=== PATIENT | female | born 1970 | race Caucasian/White ===

== ENCOUNTER → 2017-12-31 | Day surgery (SDC) | payer OTHER ==
[2017-12-25 13:26] LABS: BASOPHILS # (AUTO) 0.1 (0.0-0.1); BASOPHILS % 0.4 % (0.0-1.0); EOSINOPHILS # (AUTO) 0.3 (0.0-0.4); EOSINOPHILS % 2.1 % (0.0-6.0); HEMOGLOBIN 14.8 g/dL (12.0-16.0); LYMPHOCYTES # (AUTO) 2.4 (1.0-3.2); LYMPHOCYTES % 17.4 % (18.0-39.1); MEAN CORPUSCULAR HEMOGLOBIN 30.7 pg (28-32); MEAN CORPUSCULAR HGB CONC 32.9 g/dL (31-35); MEAN CORPUSCULAR VOLUME 93.4 fL (81-99); MONOCYTES # (AUTO) 0.9 (0.2-0.8); MONOCYTES % 6.4 % (4.4-11.3); NEUTROPHILS # (AUTO) 10.2 (2.1-6.9); NEUTROPHILS % 73.2 % (38.7-80.0); PLATELET COUNT 476 x10e3/uL (140-360); RED BLOOD COUNT 4.82 x10e6/uL (3.6-5.1); RED CELL DISTRIBUTION WIDTH 13.6 % (11.7-14.4)
--- NOTE | 2017-12-25 14:15 | Diagnostic Imaging Report ---
PROCEDURE: X-RAY CHEST, TWO VIEWS COMPARISON: None. INDICATIONS: PRE-OPERATIVE CHEST X-RAY FOR RT. FOOT SURGERY. FINDINGS: The lungs are well-inflated. No focal consolidation, pleural effusion, or pneumothorax. Tortuosity of the thoracic aorta with an otherwise normal cardiomediastinal contour. No pulmonary edema. No acute osseous abnormality. CONCLUSION: No acute cardiopulmonary abnormality. Dictated by: Masood Driscoll M.D. on 12/25/2017 at 14:13 Electronically approved by: Masood Driscoll M.D. on 12/25/2017 at 14:13
[~2017-12-31] MED LIST: BETAMETHASONE DISODIUM PHOS 6 MG/ML VIAL ONE; BUPIVACAINE HCL 0.5% INJ 30 ML VIAL INJ ONE; CEFAZOLIN SOD 2 GM/D5W 50ML 50 ML IV ONE; CENTRUM COMPLE1 EACH PO; DEXAMETHASONE SOD PHOS INJ 4 MG/ML VIAL ONE; FENTANYL CITRATE/PF 100MCG/2 ML INJ ONE; FLEXERIL10 MG PO; HYDROCODON-ACE1 EAC3 PO; KETOROLAC TROMETHAMINE 30 MG/ML VIAL ONE; LIDOCAINE HCL 2% LOCAL INJ 5 ML SDV VIAL INJ ONE; MIDAZOLAM HCL 2 MG/2 ML VIAL ONE; ONDANSETRON HCL INJ 2 MG/ML VIAL ONE; PAROXETINE HCL20 MG PO; PREDNISONE20 MG PO; PROPOFOL IV EMULSION 10 MG/ML 20 ML VIAL ONE; PROVENTIL HFA6.7 GM PO; SERTRALINE; TRAZODONE HCL100 MG PO; VIT B12 PO; WOMEN'S DAILY1 EAC2 PO; Z.0.ADDERALL 20 MG20 PO; ZOLOFT; ZOLOFT25 MG PO
--- NOTE | 2017-12-31 17:06 | Operative Report ---
DATE OF PROCEDURE: December 31, 2017 PREOPERATIVE DIAGNOSES 1. Tarsal tunnel syndrome right foot. 2. Plantar fasciitis right foot. 3. Entrapment neuritis plantar aspect right foot. POSTOPERATIVE DIAGNOSES 1. Tarsal tunnel syndrome right foot. 2. Plantar fasciitis right foot. 3. Entrapment neuritis plantar aspect right foot. OPERATIONS PERFORMED 1. Tarsal tunnel release right foot. 2. Instep plantar fasciotomy right foot. 3. Neurolysis, Diaz's nerve, right foot. 4. Trigger point cortisone injection. 5. Complication of posterior splint. ANESTHESIA: General LMA. HEMOSTASIS: Pneumatic tourniquet right thigh inflated to 350 mmHg. AIRLINE RESERVATIONIST: None. ESTIMATED BLOOD LOSS: Less than 20 mL. INJECTABLES: 10 mL of an 8:2 mixture of 2% lidocaine plain and dexamethasone. PATHOLOGY: None. INDICATIONS FOR PROCEDURE: Ms. Cisneros is a pleasant female having discomfort and pain associated to her right foot secondary to aforementioned diagnoses. She has failed conservative treatment and she was educated on risks and complications which include and are not limited to persistent pain, CRPS, neurovascular comprise, hematoma formation, soft tissue infection, osseous infection and others. She is willing and able to proceed. DESCRIPTION OF PROCEDURE: Under mild sedation she was brought to the operating room, placed on the operating room table in the supine position. Following induction and administration of general LMA anesthesia by anesthesia services, a well padded pneumatic tourniquet was placed on the patient's right thigh. The distal right lower extremity was scrubbed, prepped and draped in the usual aseptic manner. Extremity was then elevated, exsanguinated and tourniquet inflated to 350 mmHg. Attention was then directed to the medial aspect of the left ankle where procedure #1 started, tarsal tunnel release. A curvilinear incision was made about the side overlying the posterior medial aspect of the medial malleolus area with a curvilinear incision created along the side. The incision was then deepened utilizing combination sharp, blunt dissection and electrocautery. Once at the level of the laciniate ligament the same was transected. Care was taken to protect neurovascular structures within the same. There was some apparent engorgement to the vessels, particularly the veins surrounding the nerve indicative of indeed a true tarsal tunnel syndrome. The area was then copiously irrigated and then closure of the skin was obtained. Deep fascia was left intact in order to prevent recurrence of symptoms. Procedure #2: Plantar fasciotomy. Attention was then directed to the plantar aspect of the foot just distal to the weight-bearing surface of the heel where a linear longitudinal incision was created transversely along the plantar aspect of the foot. The incision was then deepened. Utilizing electrocautery dissection through the fat pad. Next, the plantar fascia was transected transversely leaving the lateral one-third of the same intact to prevent cuboid syndrome. The area was then copiously irrigated. Procedure #3: Via the same skin incision, neurolysis of Diaz's nerve was performed deep to the flexor digitorum brevis muscle belly. Nerve was identified and then freed of yong soft tissue entrapment. The area was then copiously irrigated once again. Procedure #4: Trigger point cortisone injection infiltrated to the surgical sites. Subsequently closure was obtained, closing the skin utilizing 4-0 Vicryl. Procedure #5: Posterior splint was then applied after application of dressings to protect the surgical site and then subsequently the patient was extubated and the tourniquet deflated and transferred to PACU, vital signs stable. Job#: [id number] MUMTAZ
== END | disposition home or self-care (01) ==
LOC: OR 07:08
PROVIDERS: ATTEND Podiatrist Foot Surgery
DX: G57.51 Tarsal tunnel syndrome, right lower limb (principal); M72.2 Plantar fascial fibromatosis; G58.8 Other specified mononeuropathies; J45.909 Unspecified asthma, uncomplicated; E66.01 Morbid (severe) obesity due to excess calories; K21.9 Gastro-esophageal reflux disease without esophagitis; F31.9 Bipolar disorder, unspecified; F41.9 Anxiety disorder, unspecified; Z01.812 Encounter for preprocedural laboratory examination; Z01.818 Encounter for other preprocedural examination
CPT/HCPCS: 28008; 28035; 36415; 64704; 71046; 85025; J0720; J1100; J1885; J2001; J2250; J2405

== ENCOUNTER → 2019-01-14 | Day surgery (SDC) | payer OTHER ==
--- NOTE | 2019-01-09 12:24 | Diagnostic Imaging Report ---
EXAMINATION: CHEST 2 VIEWS INDICATION: Pre-operative COMPARISON: None FINDINGS: TUBES and LINES: None. LUNGS: The lung volumes are low. No focal consolidation or pulmonary edema. PLEURA: No pleural effusion or pneumothorax. HEART AND MEDIASTINUM: Evaluation of heart size is not reliable with such low lung volumes. Heart size appears to be at the upper limit of normal. BONES AND SOFT TISSUES: No acute fracture or dislocation. UPPER ABDOMEN: No free air under the diaphragm. IMPRESSION: Very low lung volumes. No focal pneumonia. Signed by: Araceli Salazar MD on 01/09/2019 12:20 PM
[2019-01-09 12:50] LABS: BASOPHILS % 0.4 % (0.0-1.0); EOSINOPHILS # (AUTO) 0.2 (0.0-0.4); EOSINOPHILS % 2.1 % (0.0-6.0); HEMATOCRIT 41.2 % (34.2-44.1); LYMPHOCYTES # (AUTO) 1.7 (1.0-3.2); LYMPHOCYTES % 17.1 % (18.0-39.1); MEAN CORPUSCULAR HEMOGLOBIN 30.2 pg (28-32); MEAN CORPUSCULAR HGB CONC 31.6 g/dL (31-35); MEAN CORPUSCULAR VOLUME 95.6 fL (81-99); MONOCYTES # (AUTO) 0.7 (0.2-0.8); MONOCYTES % 6.6 % (4.4-11.3); NEUTROPHILS # (AUTO) 7.2 (2.1-6.9); NEUTROPHILS % 73.6 % (38.7-80.0); PLATELET COUNT 414 x10e3/uL (140-360); RED BLOOD COUNT 4.31 x10e6/uL (3.6-5.1); RED CELL DISTRIBUTION WIDTH 13.2 % (11.7-14.4)
[~2019-01-14] MED LIST changes: -BETAMETHASONE DISODIUM PHOS 6 MG/ML VIAL ONE; +CEFAZOLIN SOD 1 GM/NS 50ML 100 ML IV ONE; -CEFAZOLIN SOD 2 GM/D5W 50ML 50 ML IV ONE; +NEOSTIGMINE 1 MG/ML 10ML VIAL ONE; -ONDANSETRON HCL INJ 2 MG/ML VIAL ONE; +ONDANSETRON HCL INJ 2MG/ML 2ML 2 MG/ML VIAL ONE; +SEVOFLURANE INHAL SOLN 250 ML PEN BTL ONE
[2019-01-14 11:50] VITALS: BP 112/69
--- NOTE | 2019-01-14 12:51 | Operative Report ---
DATE OF PROCEDURE: 01/14/2019 SURGEON: Mecca Clements DPM PREOPERATIVE DIAGNOSES: 1. Tarsal tunnel compression, right foot. 2. Chronic plantar fasciitis, left foot. POSTOPERATIVE DIAGNOSES: 1. Tarsal tunnel compression, right foot. 2. Chronic plantar fasciitis, left foot. PROCEDURES: 1. Tarsal tunnel release, left foot. 2. Endoscopic plantar fasciotomy, left foot. PATHOLOGY: None. ANESTHESIA: General anesthetic. HEMOSTASIS: Pneumatic thigh tourniquet to 250 mmHg. ESTIMATED BLOOD LOSS: Less than 10 mL. MATERIALS: A 2 x 2 AlloWrap, lot #[id number]. COMPLICATIONS: None. CONDITION: Stable. PROCEDURE IN DETAIL: Under mild sedation, the patient was brought to the operative room, placed on the operating table in a supine position. Following IV sedation, anesthesia was obtained with a general anesthetic. At this point, the left foot scrubbed, prepped, and draped in usual aseptic manner and was then lowered to the table, tarsal tunnel release. Attention was directed to the left foot where a medial incision was made overlying the tarsal tunnel. The incision was deepened via sharp and blunt dissection down to the tarsal tunnel. At this point, the tarsal tunnel was isolated. Once the tarsal tunnel was isolated, the nerve was visualized. It was decompressed utilizing Metzenbaum. There was noted to be a very torturous vein going down into the plantar aspect of the foot and that was also decompressed. The area was then flushed with copious amount of normal sterile saline solution. The nerve was then wrapped with AlloWrap 2 x 2 in order to prevent adhesions and to prevent nerve entrapment. The area was then flushed with copious amount of normal sterile saline solution. Endoscopic plantar fasciotomy, attention was then noted to the medial aspect of the left foot where a linear incision was made overlying the insertion of plantar fascia. Sharp dissection down to the level of the plantar fascia, plantar fascia isolator was then used. Once the fascia was isolated, trocar and cannula were inserted. The trocar was removed. The camera was inserted. The medial, central and lateral bands were visualized. The medial and central bands were then transected leaving the lateral band intact. All instruments were removed. The area was then flushed with copious amount of normal sterile saline solution. All incisions were then closed closing the deepest layer with 3-0 Vicryl, 4-0 Vicryl and 4-0 nylon. Clean dressing was applied consisting of Adaptic, ointment, 4x4s, Kerlix, Webril, a posterior splint was applied and an Zoran bandage. The patient tolerated the procedure and anesthesia well without complications, was transported to recovery room with vital signs intact. The patient will be discharged home when she meets criteria. She was given instructions to be nonweightbearing, to ice and elevate the foot while at rest. Follow up in the office and to call the office if any questions, concerns, or new problems arise. LONA Palomino/PILAR /[id number]
== END | disposition home or self-care (01) ==
LOC: OR 07:58
PROVIDERS: ATTEND Podiatrist Foot & Ankle Surgery
DX: G57.52 Tarsal tunnel syndrome, left lower limb (principal); M72.2 Plantar fascial fibromatosis; E66.01 Morbid (severe) obesity due to excess calories; J45.909 Unspecified asthma, uncomplicated; F41.9 Anxiety disorder, unspecified; F31.9 Bipolar disorder, unspecified; Z01.810 Encounter for preprocedural cardiovascular examination; Z01.812 Encounter for preprocedural laboratory examination; Z01.818 Encounter for other preprocedural examination
CPT/HCPCS: 28035; 29893; 36415; 71046; 85025; 93005; J0690; J1100; J1885; J2001; J2250; J2405; J2704; J2710; J3010; Q4150

== ENCOUNTER 2019-12-02 10:00 | Emergency (ER) | payer OTHER ==
[~2019-12-02] VITALS: Ht 180.3 cm; Wt 141.5 kg
[~2019-12-02 10:00] MED LIST changes: -BUPIVACAINE HCL 0.5% INJ 30 ML VIAL INJ ONE; -CEFAZOLIN SOD 1 GM/NS 50ML 100 ML IV ONE; -DEXAMETHASONE SOD PHOS INJ 4 MG/ML VIAL ONE; -FENTANYL CITRATE/PF 100MCG/2 ML INJ ONE; -KETOROLAC TROMETHAMINE 30 MG/ML VIAL ONE; -LIDOCAINE HCL 2% LOCAL INJ 5 ML SDV VIAL INJ ONE; -MIDAZOLAM HCL 2 MG/2 ML VIAL ONE; -NEOSTIGMINE 1 MG/ML 10ML VIAL ONE; -ONDANSETRON HCL INJ 2MG/ML 2ML 2 MG/ML VIAL ONE; -PROPOFOL IV EMULSION 10 MG/ML 20 ML VIAL ONE; -SEVOFLURANE INHAL SOLN 250 ML PEN BTL ONE
--- OUTSIDE RECORDS SUMMARY | 2019-12-02 10:03 | XMS REPORT | Continuity of Care Document ---
Author Author [facility] Organization [facility] Address [address] [place] [address] Phone Unavailable Care Team Providers Care Motion Picture Scene Builder Name Role Phone Sintia DO Ethan PCP TRUE NEUMANN Attphys Unavailable CUZA, COLTEN Attphys Unavailable Payers Payer Name Policy Type Policy Number Effective Date Expiration Date S ource Problems This patient has no known problems. Allergies, Adverse Reactions, Alerts Allergy Name Allergy Type Status Severity Reaction(s) Onset Date Inacti ve Date Treating Clinician Comments Source No Known Allergies DA Active U 2016-07-05 00:00:00 [facility] Social History Social Habit Start Date Stop Date Quantity Comments Source Sex Assigned At [facility] Alcohol intake 2016-12-14 00:00:00 2016-12-14 00:00:00 Current non-drinker of alcohol (finding) Uriel Arita Smoking Status Start Date Stop Date Source Never smoker Uriel shields Medications Ordered Medication Name Filled Medication Name Start Date Stop Da te Current Medication? Ordering Clinician Indication Dosage Frequency Signature (SIG) Comments Components Source PARoxetine (PAXIL) 30 MG tablet 2016-11-25 00:00:00 Yes TAKE ONE (1) TABLET(S) BY MOUTH EVERY MORNING. Marcie Arita traZODone (DESYREL) 100 MG tablet 2016-11-24 00:00:00 Yes TAKE ONE (1) TABLET(S) BY MOUTH AT BEDTIME. [facility] Procedures This patient has no known procedures. Results Test Description Test Time Test Comments Results Result Comments Source CHEST 2 VIEWS 2019-01-09 12:19:00 [place] [address] Patient Name: FROILAN CISNEROS MR #: [id number] : 1970 Age/Sex: 48/F Req #: [id number] Adm Physician: Ordered by: TRUE NEUMANN DPM Report #: [id number] Location: OR Room/Bed: Procedure: [id number] DX/CHEST 2 VIEWS Exam Date: 01/09/19 Exam Time: 1155 REPORT STATUS: Signed EXAMINATION: CHEST 2 VIEWS INDICATION: Pre-operative COMPARISON: None FINDINGS: TUBES and LINES: None. LUNGS: The lung volumes are low. No focal consolidation or pulmonary edema. PLEURA: No pleural effusion or pneumothorax. HEART AND MEDIASTINUM: Evaluation of heart size is not reliable with such low lung volumes. Heart size appears to be at the upper limit of normal. BONES AND SOFT TISSUES: No acute fracture or dislocation. UPPER ABDOMEN: No free air under the diaphragm. IMPRESSION: Very low lung volumes. No focal pneumonia. Signed by: Thuan Johnston MD on 01/09/2019 12:20 PM Dictated By: THUAN JOHNSTON MD 1220 Transcribed By: ANDREW on 01/09/19 1220 COPY TO: TRUE NEUMANN DPM CHEST 2 VIEWS 2017-12-25 14:13:00 [place] [address] Patient Name: FROILAN CISNEROS MR #: [id number] : 1970 Age/Sex: 47/F Req #: [id number] [facility] Physician: Ordered by: DEMETRIA PURCELL MD Report #: [id number] Location: OR Room/Bed: Procedure: [id number] DX/CHEST 2 VIEWS Exam Date: 12/25/17 Exam Time: 1333 REPORT STATUS: Signed PROCEDURE: X-RAY CHEST, TWO VIEWS COMPARISON: None. INDICATIONS: PRE- OPERATIVE CHEST X-RAY FOR RT. FOOT SURGERY. FINDINGS: The lungs are well-inflated. No focal consolidation, pleural effusion, or pneumothorax. Tortuosity of the thoracic aorta with an otherwise normal cardiomediastinal contour. No pulmonary edema. No acute osseous abnormality. CONCLUSION: No acute cardiopulmonary abnormality. Dictated by: Emi Rodriguez M.D. on 12/25/2017 at 14:13 Electronically approved by: Emi Rodriguez M.D. on 12/25/2017 at 14:13 Dictated By: EMI RODRIGUEZ MD 1413 Transcribed By: KAROLINA on 12/25/17 1413 COPY TO: DEMETRIA PURCELL MD
--- OUTSIDE RECORDS SUMMARY | 2019-12-02 10:03 | XMS REPORT | Clinical Summary ---
Author Author [facility] Organization [facility] Address Unknown Phone Unavailable Care Team Providers Care Managing Consultant Clinical Professor Name Role Phone Ethan Patricio DO PCP Allergies No Known Allergies Medications End Date Status Medication Sig Dispensed Refills Start Date Active PARoxetine (PAXIL) 30 MG TAKE ONE (1) 11 11/25 tablet TABLET(S) BY 7 MOUTH EVERY MORNING. Active traZODone (DESYREL) 100 TAKE ONE (1) 2 201 MG tablet TABLET(S) BY 7 MOUTH AT BEDTIME. Active Problems Not on file Social History Date Tobacco Use Types Packs/Day Years Used Never Smoker Drinks/Week oz/Week Comments Alcohol Use No Sex Assigned at Date Recorded Not on file Industry Job Start Date Occupation Not on file Not on file Not on file Travel End Travel History Travel Start No recent travel history available. Last Filed Vital Signs Not on file Plan of Treatment Not on file Results Not on fileafter 12/01/2018 Insurance Type Payer Benefit Subscriber ID Effective Phone Address Plan / Dates Group HMO CIGNA CIGNA xxxxxxxxxxx 2014-P HMO/POS resent Advance Directives For more information, please contact: [phone] Patient Instrument Person Explanation Type Date Recorded Advance Directives, Living Will and Medical Power of Assistant Auditor
[2019-12-02] MEDS ORDERED: PHENAZOPYRIDIN200 MG (10:19)
[2019-12-02] MEDS ORDERED: CEPHALEXIN500 MG (10:19)
[2019-12-02] MEDS ORDERED: DEXTROAMP-AMPHE30 M1 (10:19)
[2019-12-02] MEDS ORDERED: HYDROCODONE/APAP 7.5MG-325MG 1 EA TAB PO ONE (10:30)
[2019-12-02 10:40] LABS: BASOPHILS # (AUTO) 0.1 (0.0-0.1); BASOPHILS % 0.5 % (0.0-1.0); EOSINOPHILS # (AUTO) 0.3 (0.0-0.4); EOSINOPHILS % 3.5 % (0.0-6.0); HEMATOCRIT 40.2 % (34.2-44.1); HEMOGLOBIN 12.8 g/dL (12.0-16.0); LYMPHOCYTES # (AUTO) 1.7 (1.0-3.2); LYMPHOCYTES % 17.3 % (18.0-39.1); MEAN CORPUSCULAR HEMOGLOBIN 29.6 pg (28-32); MEAN CORPUSCULAR HGB CONC 31.8 g/dL (31-35); MEAN CORPUSCULAR VOLUME 93.1 fL (81-99); MONOCYTES # (AUTO) 0.6 (0.2-0.8); NEUTROPHILS # (AUTO) 6.9 (2.1-6.9); NEUTROPHILS % 72.4 % (38.7-80.0); PLATELET COUNT 423 x10e3/uL (140-360); RED BLOOD COUNT 4.32 x10e6/uL (3.6-5.1); RED CELL DISTRIBUTION WIDTH 13.3 % (11.7-14.4)
[2019-12-02 11:01] LABS: ALANINE AMINOTRANSFERASE 31 IU/L (0-55); ALBUMIN 3.9 g/dL (3.5-5.0); ALBUMIN/GLOBULIN RATIO 1.1 (0.8-2.0); ALKALINE PHOSPHATASE 70 IU/L (40-150); ANION GAP 14.3 mmol/L (8-16); BLOOD UREA NITROGEN 11 mg/dL (7-26); BUN/CREATININE RATIO 15 (6-25); CALCIUM 9.4 mg/dL (8.4-10.2); CARBON DIOXIDE 25 mmol/L (22-29); CHLORIDE 105 mmol/L (98-107); CREATINE KINASE 299 IU/L (29-168); CREATININE, SERUM 0.73 mg/dL (0.57-1.11); EST GLOMERULAR FILTRATION RATE > 60 ML/MIN (60-); GLUCOSE 87 mg/dL (74-118); POTASSIUM 3.3 mmol/L (3.5-5.1); SODIUM 141 mmol/L (136-145)
[2019-12-02 11:05] LABS: INR 0.88; PROTHROMBIN TIME 12.4 seconds (11.9-14.5)
--- NOTE | 2019-12-02 11:30 | Diagnostic Imaging Report ---
Right foot, 3 views. History: Right foot pain and swelling. Findings: There is mild dorsal soft tissue swelling. Bone mineralization is normal. There is no evidence of fracture or dislocation. There are no lytic or sclerotic lesions. Mild degenerative changes are present in the tarsometatarsal and interphalangeal joints. A plantar calcaneal spur is present. The joint spaces are within normal limits. IMPRESSION: Mild dorsal soft tissue swelling without acute osseous abnormality. Signed by: Tanner Madrigal on 12/02/2019 11:26 AM
--- NOTE | 2019-12-02 12:14 | Emergency Department Note ---
History of Present Illnes History of Present Illness Chief Complaint: Extremity Trauma/Pain History of Present Illness This is a 49 year old female RT FOOT SWOLLEN AND PINK, +DP AND CAP REFILL < 2 SECONDS. AAOX4. AMBULATORY WITH CANE. Historian: Patient Arrival Mode: Car Manager Account Management Required: No Onset (how long ago): day(s) (3) Location: RIGHT FOOT Quality: PAIN Radiation: Reports non-radiation Severity: moderate Onset quality: gradual Timing of current episode: constant Progression: worsening Context: Denies recent illness Relieving factors: none Exacerbating factors: none Associated symptoms: Reports denies other symptoms Treatments prior to arrival: none Past Medical/Family History Physician Review I have reviewed the patient's past medical and family history. Any updates have been documented here. Past Medical History Recent Fever: No Clinical Suspicion of Infectio: No New/Unexplained Change in Ment: No Past Medical History: Chronic Back Pain Other Medical History: BIPOLAR, H/O ADHD HERNIATED DISCS X 3 SEVERE MORBID OBESITY Other Surgery: X 2 Social History Smoking Cessation: Never Smoker Counseling Performed: No Alcohol Use: None Any Illegal Drug Use: No TB Exposure/Symptoms: No Physically hurt or threatened: No Family History Family history of heart diseas: No Other Last Tetanus: > 10 YEARS Review of Systems Review of Systems Constitutional: Reports no symptoms EENTM: Reports no symptoms Cardiovascular: Reports no symptoms Respiratory: Reports no symptoms Gastrointestinal: Reports no symptoms Genitourinary: Reports no symptoms Musculoskeletal: Reports as per HPI Integumentary: Reports no symptoms Neurological: Reports no symptoms Psychological: Reports no symptoms Endocrine: Reports no symptoms Hematological/Lymphatic: Reports no symptoms Review of other systems All other systems reviewed and negative. Physical Exam Related Data Allergies: Coded Allergies: No Known Allergies (Unverified , 03/29/12) Triage Vital Signs Vital Signs Date Time Temp Pulse Resp B/P (MAP) Pulse Ox O2 Delivery O2 Flow Rate FiO2 12/02/19 10:04 98.2 88 20 157/89 97 Physical Exam CONSTITUTIONAL Constitutional: Reports well-developed, Reports well-nourished HENT HENT: Reports normocephalic, Reports atraumatic, Reports oropharynx isabelle ar/moist, Reports nose normal HENT L/R: Reports left ext ear normal, Reports right ext ear normal EYES Eyes: Reports PERRL, Reports conjunctivae normal NECK Neck: Reports ROM normal PULMONARY Pulmonary: Reports effort normal, Reports breath sounds normal CARDIOVASCULAR Cardiovascular: Reports regular rhythm, Reports heart sounds normal, Reports capillary refill normal, Reports normal rate GASTROINTESTINAL Abdominal: Reports soft, Reports nontender, Reports bowel sounds normal GENITOURINARY Genitourinary: Reports exam deferred SKIN Skin: Reports warm, Reports dry MUSCULOSKELETAL Musculoskeletal: Reports other (MILD ERYTHEMA TO RIGHT FOOT, MILD TENDERNESS OF FOOT, MOSTLY AT 1ST METATARSAL AREA) NEUROLOGICAL Neurological: Reports alert, Reports oriented x 3, Reports no gross motor or sensory deficits PSYCHOLOGICAL Psychological: Reports mood/affect normal, Reports judgement normal Results Laboratory Result Diagram: 12/02/19 1000 12/02/19 1000 Laboratory Laboratory Tests Test 12/02/19 10:00 White Blood Count 9.52 x10e3/uL (4.8-10.8) Red Blood Count 4.32 x10e6/uL (3.6-5.1) Hemoglobin 12.8 g/dL (12.0-16.0) Hematocrit 40.2 % (34.2-44.1) Mean Corpuscular Volume 93.1 fL (81-99) Mean Corpuscular Hemoglobin 29.6 pg (28-32) Mean Corpuscular Hemoglobin Concent 31.8 g/dL (31-35) Red Cell Distribution Width 13.3 % (11.7-14.4) Platelet Count 423 x10e3/uL (140-360) Neutrophils (%) (Auto) 72.4 % (38.7-80.0) Lymphocytes (%) (Auto) 17.3 % (18.0-39.1) Monocytes (%) (Auto) 6.0 % (4.4-11.3) Eosinophils (%) (Auto) 3.5 % (0.0-6.0) Basophils (%) (Auto) 0.5 % (0.0-1.0) Neutrophils # (Auto) 6.9 (2.1-6.9) Lymphocytes # (Auto) 1.7 (1.0-3.2) Monocytes # (Auto) 0.6 (0.2-0.8) Eosinophils # (Auto) 0.3 (0.0-0.4) Basophils # (Auto) 0.1 (0.0-0.1) Absolute Immature Granulocyte (auto 0.03 x10e3/uL (0-0.1) Prothrombin Time 12.4 seconds (11.9-14.5) Prothromb Time International Ratio 0.88 Activated Partial Thromboplast Time 30.0 seconds (23.8-35.5) Sodium Level 141 mmol/L (136-145) Potassium Level 3.3 mmol/L (3.5-5.1) Chloride Level 105 mmol/L (98-107) Carbon Dioxide Level 25 mmol/L (22-29) Anion Gap 14.3 mmol/L (8-16) Blood Urea Nitrogen 11 mg/dL (7-26) Creatinine 0.73 mg/dL (0.57-1.11) Estimat Glomerular Filtration Rate > 60 ML/MIN (60-) BUN/Creatinine Ratio 15 (6-25) Glucose Level 87 mg/dL (74-118) Uric Acid 6.7 mg/dL (2.6-8.0) Calcium Level 9.4 mg/dL (8.4-10.2) Total Bilirubin 0.4 mg/dL (0.2-1.2) Aspartate Amino Transf (AST/SGOT) 26 IU/L (5-34) Alanine Aminotransferase (ALT/SGPT) 31 IU/L (0-55) Alkaline Phosphatase 70 IU/L (40-150) Creatine Kinase 299 IU/L (29-168) Creatine Kinase MB 4.50 ng/mL (0-5.0) Troponin I 0.028 ng/mL (0-0.300) Total Protein 7.4 g/dL (6.5-8.1) Albumin 3.9 g/dL (3.5-5.0) Globulin 3.5 g/dL (2.3-3.5) Albumin/Globulin Ratio 1.1 (0.8-2.0) Lab results reviewed: Yes Imaging Imaging results reviewed: Yes Impressions Right foot, 3 views. History: Right foot pain and swelling. Findings: There is mild dorsal soft tissue swelling. Bone mineralization is normal. There is no evidence of fracture or dislocation. There are no lytic or sclerotic lesions. Mild degenerative changes are present in the tarsometatarsal and interphalangeal joints. A plantar calcaneal spur is present. The joint spaces are within normal limits. IMPRESSION: Mild dorsal soft tissue swelling without acute osseous abnormality. Signed by: Tanner Madrigal on 12/02/2019 11:26 AM Assessment & Plan Medical Decision Making MDM CBC, CHEM, XRAY - R/O INFECTION (BUT CLINICALLY DOES NOT APPEAR TO BE CELLULITIS), R/O FX Assessment & Plan Final Impression: (1) Foot pain Depart Disposition: HOME, SELF-CARE Last Vital Signs Date Time Temp Pulse Resp B/P (MAP) Pulse Ox O2 Delivery O2 Flow Rate FiO2 12/02/19 10:04 98.2 88 20 157/89 97 Home Meds Reported Medications Phenazopyridine Hcl (PHENAZOPYRIDINE HCL) 200 Mg Tablet 12/02/19 Cephalexin (CEPHALEXIN) 500 Mg Capsule 12/02/19 Dextroamphetamine/Amphetamine (Dextroamp-Amphetamin 30 mg Tab) 30 Mg Tablet 12/02/19 Albuterol Sulfate (PROVENTIL HFA) 6.7 Gm Hfa.aer.ad, INH PO PRN 12/25/17 Paroxetine Hcl (PAROXETINE HCL) 20 Mg Tablet, 40 MG PO DAILY, #30 TAB 12/25/17 Multivitamin/Iron/Folic Acid (CENTRUM COMPLETE MULTIVIT TAB) 1 Each Tablet, 1 TAB PO DAILY 12/25/17 [Vit B12] No Conflict Check, 1 TAB PO DAILY 12/25/17 Multivits,Ca,Minerals/Iron/Fa (WOMEN'S DAILY CAPLET) 1 Each Tablet, 1 TAB PO DAILY 12/25/17 Trazodone Hcl (TRAZODONE HCL) 100 Mg Tablet, 100 MG PO HS 11/20/12 Amphet Asp/Amphet/D-Amphet (Adderall 20 Mg Tablet) 20 Mg Tablet, 30 MG PO TID 03/29/12 Medications in the ED Acetaminophen/ Hydrocodone Bitart 1 ea NOW ONCE PO Last administered on 12/02/19at 11:39; Admin Dose 1 EA; Start 12/02/19 at 10:30; Stop 12/02/19 at 10:31; Status DC DHEERAJ HENDERSON MD Dec 02, 2019 12:14
--- NOTE | 2019-12-02 12:29 | NUR ---
TECH HERE FOR VENOUS DOPPLER.
== END 2019-12-02 14:11 | disposition home or self-care (01) ==
LOC: ER 10:00
DX: M79.671 Pain in right foot (principal); M79.89 Other specified soft tissue disorders; M54.9 Dorsalgia, unspecified; G89.29 Other chronic pain; E66.01 Morbid (severe) obesity due to excess calories; F31.9 Bipolar disorder, unspecified
CPT/HCPCS: 36415; 80053; 82550; 82553; 84484; 84550; 85025; 85610; 85730; 87040; 93971; 99284

== ENCOUNTER 2021-01-26 15:42 | Emergency (ER) | payer OTHER ==
[~2021-01-26] VITALS: Ht 180.3 cm; Wt 141.5 kg
[~2021-01-26 15:42] MED LIST changes: +CEPHALEXIN500 MG; +DEXTROAMP-AMPHE30 M1; +PHENAZOPYRIDIN200 MG
[2021-01-26] MEDS ORDERED: TETANUS/DIPHTHERIA TOX ADULT 0.5 ML SYR IM ONE (18:30)
[2021-01-26] MEDS ORDERED: TETANUS/DIPHTHERIA TOX ADULT 0.5 ML SYR ONE (18:38)
== END 2021-01-26 18:38 | disposition home or self-care (01) ==
LOC: ER 17:08
DX: S80.212A Abrasion, left knee, initial encounter (principal); S80.211A Abrasion, right knee, initial encounter; S00.83XA Contusion of other part of head, initial encounter; W01.0XXA Fall on same level from slipping, tripping and stumbling without subsequent striking against object, initial encounter; Y93.01 Activity, walking, marching and hiking; E66.01 Morbid (severe) obesity due to excess calories; F31.9 Bipolar disorder, unspecified; M54.9 Dorsalgia, unspecified; G89.29 Other chronic pain
CPT/HCPCS: 70450; 70486; 72125; 90471; 90714; 99283

== ENCOUNTER → 2024-02-09 | Day surgery (SDC) | payer OTHER ==
[~2024-02-09] MED LIST changes: +CITALOPRAM HBR20 MG PO; +FENTANYL CITRATE/PF 100MCG/2 ML INJ ONE; +LIDOCAINE HCL 2% LOCAL INJ 5 ML SDV VIAL INJ ONE; +PROPOFOL IV EMULSION 10 MG/ML 20 ML VIAL ONE
[2024-02-09] MEDS: LACTATED RINGER'S 1,000 ML ONE (09:52)
[2024-02-09 10:55] VITALS: TEMP 97
[2024-02-09 11:15] VITALS: BP 121/83; PULSE 73; RESP 18; O2SAT 99
== END | disposition home or self-care (01) ==
LOC: OR 09:04
PROVIDERS: ATTEND Internal Medicine Gastroenterology
DX: Z12.11 Encounter for screening for malignant neoplasm of colon (principal); K57.30 Diverticulosis of large intestine without perforation or abscess without bleeding; K64.8 Other hemorrhoids; R10.12 Left upper quadrant pain; J44.9 Chronic obstructive pulmonary disease, unspecified; R03.0 Elevated blood-pressure reading, without diagnosis of hypertension; N28.9 Disorder of kidney and ureter, unspecified; F17.200 Nicotine dependence, unspecified, uncomplicated; Z01.810 Encounter for preprocedural cardiovascular examination; Z99.2 Dependence on renal dialysis; Z79.1 Long term (current) use of non-steroidal anti-inflammatories (NSAID); Z79.899 Other long term (current) drug therapy; Z68.43 Body mass index [BMI] 50.0-59.9, adult; Z80.0 Family history of malignant neoplasm of digestive organs
CPT/HCPCS: 45378; 93005; J2001; J2704; J3010; J7121

== ENCOUNTER 2024-06-19 09:36 | Emergency (ER) | payer OTHER ==
[~2024-06-19] VITALS: Ht 180.3 cm; Wt 166.5 kg
[~2024-06-19 09:36] MED LIST changes: -FENTANYL CITRATE/PF 100MCG/2 ML INJ ONE; -LIDOCAINE HCL 2% LOCAL INJ 5 ML SDV VIAL INJ ONE; -PROPOFOL IV EMULSION 10 MG/ML 20 ML VIAL ONE
[2024-06-19 09:42] VITALS: PULSE 79; RESP 16; TEMP 98; O2SAT 98
== END 2024-06-19 11:30 | disposition home or self-care (01) ==
LOC: ER 09:43
DX: S93.692A Other sprain of left foot, initial encounter (principal); W01.0XXA Fall on same level from slipping, tripping and stumbling without subsequent striking against object, initial encounter; Y93.01 Activity, walking, marching and hiking; Y92.89 Other specified places as the place of occurrence of the external cause; M54.9 Dorsalgia, unspecified; G89.29 Other chronic pain; F31.9 Bipolar disorder, unspecified; E66.01 Morbid (severe) obesity due to excess calories
CPT/HCPCS: 99282